=== PATIENT | male | born 1990 | race Caucasian/White ===

== ENCOUNTER 2017-07-27 14:21 | Emergency (ER) | payer OTHER ==
[~2017-07-27] VITALS: Ht 162.6 cm; Wt 68.2 kg
[2017-07-27] MEDS ORDERED: CHOLESTEROL PO (14:39)
[2017-07-27] MEDS ORDERED: DiphenhydrAMINE HCL 25 MG/10 ML ELIXIR UDCUP PO ONE (15:30)
[2017-07-27] MEDS ORDERED: PredniSONE 10 MG TABLET PO ONE (15:30)
[2017-07-27 16:00] VITALS: BP 121/81
== END 2017-07-27 16:25 | disposition home or self-care (01) ==
LOC: EMS 14:23
DX: L50.9 Urticaria, unspecified (principal)
CPT/HCPCS: 99283; J7512